=== PATIENT | female | born 1975 | race African-American/Black ===

== ENCOUNTER 2020-02-24 09:49 | Emergency (ER) | payer BC, SELFPAY ==
[2020-02-24 09:58] VITALS: BP 113/74; PULSE 72; RESP 16; TEMP 36.7; O2SAT 100
--- NOTE | 2020-02-24 10:44 | ED.LOWEXIN ---
HPI - Extremity Injury (Lower) General Chief Complaint: Extremity Injury, Lower Stated Complaint: hip/leg pain Time Seen by Provider: 02/24/20 10:34 Source: patient and RN notes reviewed Mode of arrival: ambulatory Limitations: no limitations History of Present Illness HPI Narrative: Patient presents today complaining of severe left hip pain that started yesterday. It occasionally radiates to the knee. Denies numbness or tingling in the extremity. Denies any injury, trauma, or fall. Denies loss of bowel or bladder control. Pain increases with walking or twisting. Currently rates her pain 8/10. She has tried no [id number] interventions prior to arrival. Denies back pain. Reports pain in the hip is worse after she has been sitting down for long periods of time and tries to stand. MD complaint: other (Left hip pain) Related Data Home Medications Medication Instructions Recorded Confirmed lisinopril-hydrochlorothiazide 1 tablet PO DAILY 02/24/20 02/24/20 Allergies Allergy/AdvReac Type Severity Reaction Status Date / Time No Known Allergies Allergy Verified 02/24/20 10:09 Review of Systems Review of Systems: Narrative: CONSTITUTIONAL: Denies body aches, fever, chills, or sweats. EYES: Denies visual changes, redness, or discharge. ENT: Denies rhinorrhea, congestion, sore throat, or otalgia. CARDIOVASCULAR: Denies chest pain, palpitations, or edema. RESPIRATORY: Denies cough or dyspnea. GASTROINTESTINAL: Denies abdominal pain, nausea, vomiting, or diarrhea. GENITOURINARY: Denies dysuria or hematuria. SKIN: Denies rash, itching, or wounds. MUSCULOSKELETAL: Denies back pain, or myalgia. + Left hip pain NEUROLOGIC: Denies headache, numbness, tingling, or weakness. PSYCH: Denies depression or anxiety. PMFSH Comments At time of signature, I have reviewed and agree with nursing past medical, surgical, social and family history unless otherwise noted. Please see nursing chart for further information. There is no relevant family history pertinent to the presenting complaint Exam Narrative: Exam Narrative: GENERAL: Well-appearing, well-nourished, and in moderate pain distress. HEAD: Normocephalic, atraumatic. EYES: EOMI. No redness or drainage. ENT: Mucous membranes pink and moist. NECK: Normal AROM. CHEST: No respiratory distress. MUSCULOSKELETAL: No bony tenderness of the spine. No thoracic or lumbar paraspinal muscle tenderness bilaterally. No SI joint tenderness bilaterally.. EXTREMITIES: Significant pain with range of motion of the left hip. No edema, erythema, or ecchymosis. Patient has point tenderness to the left greater trochanter. Distal sensation intact. Capillary refill normal. Pedal pulse normal. Full range of motion of the ankle and knee. SKIN: Warm, dry, no rash. Capillary refill normal. Normal skin turgor. NEURO: No focal deficits. Alert and oriented x3. Limping gait. PSYCH: Normal affect. No signs of depression or anxiety. Course Vital Signs Vital signs: Vital Signs Temperature 98.0 F 02/24/20 09:58 Pulse Rate 72 02/24/20 09:58 Respiratory Rate 16 02/24/20 09:58 Blood Pressure 113/74 02/24/20 09:58 Pulse Oximetry 100 02/24/20 09:58 Temperature 98.0 F 02/24/20 09:58 Pulse Rate 72 02/24/20 09:58 Respiratory Rate 16 02/24/20 09:58 Blood Pressure 113/74 02/24/20 09:58 Pulse Oximetry 100 02/24/20 09:58 Reviewed MDM - Extremity Injury (Lower) Differential Diagnosis Differential diagnosis: Likely other (Trochanteric bursitis, hip tendinitis, sciatica, osteoarthritis) Critical Care Time Critical Care Time Critical Care Time: No Discharge Plan Discharge Clinical Impression: Trochanteric bursitis of left hip Patient Disposition: Home, Self-Care Condition: Stable Instructions: Hip Bursitis (ED) Additional Instructions: Your symptoms are likely due to bursitis in your hip. Please take medications as prescribed. Do not drive
== END 2020-02-24 10:51 | disposition home or self-care (01) ==
PROVIDERS: Emergency Provider Nurse Practitioner
DX: M70.62 Trochanteric bursitis, left hip (principal); I10 Essential (primary) hypertension
CPT/HCPCS: 99213; G0463

== ENCOUNTER 2021-07-17 14:52 | Emergency (ER) | payer BC, SELFPAY ==
[2021-07-17 15:02] VITALS: BP 154/109; PULSE 90; RESP 20; TEMP 36.8; O2SAT 98
--- NOTE | 2021-07-17 15:20 | ED.NAVMDI ---
HPI - Nausea/Vomiting/Diarrhea General Chief complaint: Nausea/Vomiting/Diarrhea Stated complaint: Adbominal Pain/Diarrhea Time Seen by Provider: 07/17/21 15:10 Source: patient and RN notes reviewed Mode of arrival: ambulatory Limitations: no limitations History of Present Illness HPI Narrative: Patient presents today complaining of diarrhea since this morning. She has had 3 episodes of loose stool and some abdominal cramping. Denies blood or mucus in the stool. Denies fever, nausea, vomiting, or any additional symptoms. She has tried no medication or any other [id number] treatment prior to arrival. No known sick contacts. No suspicious food intake. MD elicited complaint: diarrhea Related Data Home Medications Medication Instructions Recorded Confirmed No Home Medications 07/17/21 07/17/21 Allergies Allergy/AdvReac Type Severity Reaction Status Date / Time No Known Allergies Allergy Verified 02/24/20 10:09 Review of Systems Review of Systems: CONSTITUTIONAL: Denies body aches, fever, chills, or sweats. EYES: Denies visual changes, redness, or discharge. ENT: Denies rhinorrhea, congestion, sore throat, or otalgia. CARDIOVASCULAR: Denies chest pain, palpitations, or edema. RESPIRATORY: Denies cough or dyspnea. GASTROINTESTINAL: Denies abdominal pain, nausea, vomiting. + Diarrhea, abdominal cramping GENITOURINARY: Denies dysuria or hematuria. SKIN: Denies rash, itching, or wounds. MUSCULOSKELETAL: Denies back pain, joint pain, or myalgia. NEUROLOGIC: Denies headache, numbness, tingling, or weakness. PSYCH: Denies depression or anxiety. [facility] Past Medical History Medical History (Updated 07/17/21 @ 15:24 by Sonam Odell, [facility], ) Hypertension Comments At time of signature, I have reviewed and agree with nursing past medical, surgical, social and family history unless otherwise noted. Please see nursing chart for further information. There is no relevant family history pertinent to the presenting complaint Exam Narrative: GENERAL: Well-appearing, well-nourished, and in no acute distress. HEAD: Normocephalic, atraumatic. EYES: EOMI. No redness or drainage. Conjunctivae normal. ENT: Mucous membranes pink and moist. NECK: Normal AROM. CHEST: No respiratory distress. Clear to auscultation. HEART: Regular rate and rhythm. No murmur appreciated. Normal peripheral pulses. ABDOMEN: Soft, nontender, nondistended, normal active bowel sounds. MUSCULOSKELETAL: No bony tenderness. EXTREMITIES: Normal range of motion. No edema. SKIN: Warm, dry, no rash. Capillary refill normal. Normal skin turgor. NEURO: No focal deficits. Alert and oriented x3. Gait steady. PSYCH: Normal affect. No signs of depression or anxiety. Course Course Level of Care: Express Care Visit Vital Signs Vital signs: Vital Signs Temperature 98.3 F 07/17/21 15:02 Pulse Rate 90 07/17/21 15:02 Respiratory Rate 20 07/17/21 15:02 Blood Pressure 154/109 H 07/17/21 15:02 Pulse Oximetry 98 07/17/21 15:02 Temperature 98.3 F 07/17/21 15:02 Pulse Rate 90 07/17/21 15:02 Respiratory Rate 20 07/17/21 15:02 Blood Pressure 154/109 H 07/17/21 15:02 Pulse Oximetry 98 07/17/21 15:02 Reviewed. Pt has been instructed to follow up with her PCP regarding her elevated blood pressure today. MDM - Nausea/Vomiting/Diarrhea Differential Diagnosis Differential diagnosis: Likely food poisoning, gastroenteritis, dehydration and other (Colitis) Critical Care Time Critical Care Time Critical Care Time: No Discharge Plan Discharge Clinical Impression: Diarrhea Qualifiers: Diarrhea type: unspecified type Qualified Code(s): R19.7 - Diarrhea, unspecified Patient Disposition: Home, Self-Care Condition: Stable Instructions: Acute Diarrhea (ED) Additional Instructions: Your diarrhea is likely due to a viral illness, which should resolve on its own in a couple of days. Make sure you are staying hydrated
== END 2021-07-17 15:23 | disposition home or self-care (01) ==
PROVIDERS: Emergency Provider Nurse Practitioner
DX: R19.7 Diarrhea, unspecified (principal); I10 Essential (primary) hypertension
CPT/HCPCS: 99211; G0463